=== PATIENT | female | born 1975 | race Two or more races ===

== ENCOUNTER 2025-03-01 09:35 | Emergency (ER) | payer BC ==
[~2025-03-01] VITALS: Ht 162.6 cm; Wt 54.4 kg
[2025-03-01 09:45] VITALS: BP 119/77; O2SAT 98
[2025-03-01] MEDS ORDERED: LEVOTHYROXINE100 MC1 PO (09:48)
[2025-03-01] MEDS ORDERED: KETOROLAC TROMETHAMINE 30 MG VIAL ONE (10:42)
[2025-03-01] MEDS ORDERED: AZITHROMYCIN 500 MG TABLET PO ONE ×2 (10:43→10:45)
[2025-03-01] MEDS ORDERED: METHYLPREDNISOLONE SOD SUCC 125 MG VIAL ONE (10:43)
[2025-03-01] MEDS ORDERED: KETOROLAC TROMETHAMINE 30 MG VIAL IV ONE (10:45)
[2025-03-01] MEDS ORDERED: GUAIFENESIN/DEXTROMETHORPHAN 100MG/10ML BLIST.PACK PO ONE (10:45)
[2025-03-01] MEDS ORDERED: METHYLPREDNISOLONE SOD SUCC 125 MG VIAL IV ONE (10:45)
[2025-03-01 10:54] LABS: HEMATOCRIT 37.7 % (36.0-45.00); HEMOGLOBIN 12.7 g/dL (12.0-15.00); MEAN CELL VOLUME 88.5 fL (80.00-100.00); MEAN CORPUSCULAR HEMOGLOBIN 29.9 pg (27.00-32.0); MEAN CORPUSCULAR HGB CONC 33.7 g/dl (32.0-36.0); PLATELET COUNT 149 K/uL (150-450); RED BLOOD COUNT 4.26 M/uL (4.00-6.00); RED CELL DISTRIBUTION WIDTH 12.8 % (11.5-14.5)
[2025-03-01 11:33] LABS: COVID-19 AG NEGATIVE (NEGATIVE); INFLUENZA A AG NEGATIVE (NEGATIVE)
[2025-03-01] MEDS ORDERED: TUSNEL LIQUID178 ML PO (12:09)
[2025-03-01] MEDS ORDERED: PROAIR RESPICL90 MCG IH (12:09)
[2025-03-01] MEDS ORDERED: ZITHROMAX500 MG PO (12:09)
== END 2025-03-01 12:18 | disposition home or self-care (01) ==
LOC: ER 09:36
PROVIDERS: General Practice
DX: J06.9 Acute upper respiratory infection, unspecified (principal); R05.9 Cough, unspecified; Z20.822 Contact with and (suspected) exposure to COVID-19